=== PATIENT | female | born 1960 | race Caucasian/White ===

== ENCOUNTER 2016-08-12 08:47 | Day surgery (SDC) | payer BC ==
[~2016-08-12 08:47] MED LIST: ACIPHEX20 MG PO; ADULT LOW DOSE81 M1 PO; AMBIEN5 MG PO; AMLOD-VALSA-HC1 EAC1 PO; ANUSOL PR; AZOR 10/40 M1 TABLET PO; AZOR 5/20 MG1 TABLET PO; Anusol HC,Anucort-HC PR; BACTROBAN OINTM22 GM TP; CARDURA4 MG PO; CLONAZEPAM1 MG PO; CRESTOR20 MG PO; CRESTOR40 MG PO; CYMBALTA60 MG PO; Cardizem CD,Cartia X PO; Cardura PO; Cymbalta PO; DIAZEPAM5 MG PO; ENDOCET 5-3251 EACH PO; Elavil PO; FLEXERIL10 MG PO; FLUOXETINE HCL20 MG PO; GABAPENTIN300 MG PO; HYDROCHLOROTHIA25 MG PO; Hydrodiuril,Oretic,E PO; KlonoPIN PO; LISINOPRIL20 MG PO; LORAZEPAM0.5 MG; Lopressor PO; Lovaza PO; MEDROL DOSEPAK4 MG PO; MELOXICAM PO; MELOXICAM15 MG PO; METOPROLOL TAR100 MG PO; MICARDIS80 MG PO; MUPIROCIN22 GM TP; NAPROSYN500 MG PO; NITROGLYCERIN TD; NOHOMEMEDS; Nitrostat,NitroQuick SL; PANTOPRAZOLE SO40 MG PO; PERCOCET 5/31 TABLET PO; PREDNISONE10 MG PO; PRINIVIL20 MG PO; PROTONIX40 MG PO; PROzac PO; PriLOSEC PO; Pristiq PO; Proventil,Ventolin H IH; QUETIAPINE FUMA50 MG PO; TOPIRAMATE25 MG PO; TOPROL XL50 MG PO; TRAMADOL HCL50 MG; TRANSDERM-NITR0.4 MG TD; TRIBENZOR PO; TRICOR145 MG PO; TYLENOL EXTRA500 MG PO; ULTRAM50 MG PO; Ultram PO; VENTOLIN HFA18 GM IH; ZESTRIL20 MG PO; ZOLPIDEM TARTRAT5 MG PO; Zestril,Prinivil PO; [UNRECOGNIZED DRUG - REMARK]
[2016-08-12 10:53] LABS: BASOPHIL COUNT 0.1 K/uL (0-0.1); EOSINOPHIL (%) 2.8 % (0-5); EOSINOPHIL COUNT 0.2 K/uL (0-0.3); HEMATOCRIT 40.5 % (36.0-46.0); IMMATURE GRANULOCYTE (%) 0.3 % (0.0-0.7); LYMPHOCYTE COUNT 1.5 K/uL (1.0-2.8); MCH 30.4 PG (29.0-34.0); MCHC 33.6 G/DL (30.0-36.0); MCV 90.6 FL (83-99); MEAN PLAT.VOLUME 10.3 uM^3 (9.5-12.4); MONOCYTE (%) 5.6 % (3-12); MONOCYTE COUNT 0.3 K/uL (0-0.8); NEUTROPHIL COUNT 3.9 K/uL (1.8-6.4); PLATELET COUNT 260 K/uL (156-360); RBC DIS.WIDTH-CV 13.1 % (11.8-14.6); RBC DIS.WIDTH-SD 43.1 % (39-53); RED BLOOD COUNT 4.47 M/uL (3.80-5.20)
[2016-08-12 11:03] LABS: PROTHROMBIN TIME 9.8 (9.2-11.2); PTT 68.9 (25-32)
[2016-08-12 11:21] LABS: ANION GAP 14 MEQ/L (2-14); CHLORIDE 101 MEQ/L (99-109); GFR ESTIMATE (CALCULATED) > 59 mL/min/; GLUCOSE 93 mg/dL (70-99); POTASSIUM 4.3 MEQ/L (3.7-5.4); SAMPLE HEMOLYSIS CHECK 0; SAMPLE ICTERIC CHECK 0; SAMPLE LIPEMIA CHECK 0; SODIUM 142 MEQ/L (136-147); UREA NITROGEN (BUN) 20 mg/dL (9-23)
== END 2016-08-12 16:08 | disposition home or self-care (01) ==
LOC: CATH 08:47
PROVIDERS: Internal Medicine Interventional Cardiology
DX: R07.9 Chest pain, unspecified (principal); R06.02 Shortness of breath; I10 Essential (primary) hypertension; R94.39 Abnormal result of other cardiovascular function study; E78.5 Hyperlipidemia, unspecified; Z79.82 Long term (current) use of aspirin
CPT/HCPCS: 80048; 85025; 85610; 85730; C1769; C1887; J1644; J2250; J3010; J7050

== ENCOUNTER 2017-11-01 20:49 | Inpatient (IN) | payer BC ==
[~2017-11-01] VITALS: Ht 154.9 cm; Wt 78.8 kg
[2017-11-01 21:33] LABS: HEMATOCRIT 39.1 % (36.0-46.0); HEMOGLOBIN 13.1 G/DL (11.9-15.5); MCH 30.8 PG (29.0-34.0); MCHC 33.5 G/DL (30.0-36.0); PLATELET COUNT 225 K/uL (156-360); RBC DIS.WIDTH-CV 13.1 % (11.8-14.6); RBC DIS.WIDTH-SD 44.2 % (39-53); RED BLOOD COUNT 4.25 M/uL (3.80-5.20); WHITE BLOOD COUNT 5.3 K/uL (4.1-10.2)
[2017-11-01 21:50] LABS: CHLORIDE 106 mEq/L (99-109); POTASSIUM 3.7 mEq/L (3.7-5.4); SODIUM 142 mEq/L (136-147)
[2017-11-01 21:52] LABS: GLUCOSE 103 mg/dL (70-99)
[2017-11-01 21:56] LABS: CREATININE 1.1 mg/dL (0.6-1.3); GFR ESTIMATE (CALCULATED) 54 mL/min/; UREA NITROGEN (BUN) 20 mg/dL (9-23)
[2017-11-02] VITALS (7 sets, daily range): BP systolic 139–174; BP diastolic 74–108
[2017-11-02] MEDS ORDERED: AZOR 10/20 M1 TABLET PO (01:23)
[2017-11-02] MEDS ORDERED: KETOCONAZOLE60 GM TP (01:24)
[2017-11-02] MEDS ORDERED: MELOXICAM15 MG PO (01:24)
[2017-11-02] MEDS ORDERED: AMLODIPINE-OLM1 EAC3 PO (01:25)
[2017-11-02] MEDS ORDERED: CLONIDINE HCL0.1 MG PO (01:26)
[2017-11-02] MEDS ORDERED: ESCITALOPRAM OXA5 MG PO (01:26)
[2017-11-02] MEDS ORDERED: PRAVASTATIN SOD20 MG PO (01:26)
[2017-11-02] MEDS ORDERED: METOPROLOL SUCC25 MG PO (01:26)
[2017-11-02 02:54] LABS: APPEARANCE SL.HAZY ((CLEAR)); BILIRUBIN NEGATIVE; BLOOD NEGATIVE; COLOR YELLOW ((YELLOW)); GLUCOSE (STRIP) NEGATIVE; KETONES NEGATIVE; LEUKOCYTES MODERATE; NITRITE NEGATIVE; PROTEIN (STRIP) NEGATIVE; SPECIFIC GRAVITY 1.027 (1.000-1.030); UROBILINOGEN 0.2 MG/DL (0.2-1.0)
[2017-11-02 02:57] LABS: BACTERIA NONE SEEN /HPF; EPITHELIAL CELLS RARE /HPF; MUCUS TRACE /LPF; RED BLOOD CELLS 0-5 /HPF (0-5); UCUL ADDED? YES; WHITE BLOOD CELLS 30-40 /HPF (0-5)
[2017-11-02 03:22] LABS: HDL CHOLESTEROL 37 MG/DL (Desirable>=50); LDL CHOLESTEROL 52 mg/dL (Desirable<100); NON-HDL CHOLESTEROL 86 mg/dL (Desirable<160); TOTAL CHOLESTEROL 123 mg/dL (Desirable<200); TRIGLYCERIDES 170 MG/DL (Normal: <150)
[2017-11-02 11:03] LABS: HEMOGLOBIN A1c (GLYCOHEMOGLOB) 5.3 % (Below 5.7)
[2017-11-03 00:18] VITALS: BP 142/70
[2017-11-03 04:10] VITALS: BP 134/69
[2017-11-03 08:15] VITALS: BP 149/81
[2017-11-03 12:30] VITALS: BP 136/76
[2017-11-03] MEDS ORDERED: CLOPIDOGREL75 MG PO (13:47)
[2017-11-03] MEDS ORDERED: BUTALB-APAP-CA1 EACH PO (13:49)
== END 2017-11-03 15:38 | disposition home or self-care (01) | DRG 103 ==
LOC: EME 20:49 → EDOF 11-02 01:40 → 5SOUTH 11-02 01:40 → ENRESERV 11-02 01:44 → 4EAST 11-02 03:12 → ENRESERV 11-02 19:25 → 5SOUTH 11-02 20:49
PROVIDERS: Hospitalist
DX: G43.109 Migraine with aura, not intractable, without status migrainosus (principal); R20.2 Paresthesia of skin; I10 Essential (primary) hypertension; E78.5 Hyperlipidemia, unspecified; I48.91 Unspecified atrial fibrillation; F32.9 Major depressive disorder, single episode, unspecified; E66.9 Obesity, unspecified; F41.9 Anxiety disorder, unspecified; K76.0 Fatty (change of) liver, not elsewhere classified; J45.909 Unspecified asthma, uncomplicated; I27.20 Pulmonary hypertension, unspecified; I07.1 Rheumatic tricuspid insufficiency; Z68.32 Body mass index [BMI] 32.0-32.9, adult; Z90.49 Acquired absence of other specified parts of digestive tract; Z88.0 Allergy status to penicillin; Z88.6 Allergy status to analgesic agent
CPT/HCPCS: 70450; 70551; 71046; 80048; 80061; 81003; 83036; 85027; 87086; 93005; 93306; 93880; 99281; 99285

== ENCOUNTER 2018-02-01 10:27 | Inpatient (IN) | payer BC ==
[~2018-02-01] VITALS: Ht 154.9 cm; Wt 75.6 kg
[~2018-02-01 10:27] MED LIST changes: +AMLODIPINE-OLM1 EAC3 PO; +AZOR 10/20 M1 TABLET PO; +BUTALB-APAP-CA1 EACH PO; +CLONIDINE HCL0.1 MG PO; +CLOPIDOGREL75 MG PO; +ESCITALOPRAM OXA5 MG PO; +KETOCONAZOLE60 GM TP; +METOPROLOL SUCC25 MG PO; +PRAVASTATIN SOD20 MG PO
[2018-02-01 11:19] LABS: HEMATOCRIT 38.4 % (36.0-46.0); MCH 30.3 PG (29.0-34.0); MCHC 33.9 G/DL (30.0-36.0); MCV 89.5 FL (83-99); PLATELET COUNT 188 K/uL (156-360); RBC DIS.WIDTH-CV 13.9 % (11.8-14.6); RBC DIS.WIDTH-SD 45.4 % (39-53); RED BLOOD COUNT 4.29 M/uL (3.80-5.20); WHITE BLOOD COUNT 9.3 K/uL (4.1-10.2)
[2018-02-01 11:27] LABS: CHLORIDE 103 mEq/L (99-109); POTASSIUM 3.3 mEq/L (3.7-5.4); SODIUM 138 mEq/L (136-147)
[2018-02-01 11:28] LABS: GLUCOSE 128 mg/dL (70-99)
[2018-02-01 11:32] LABS: CREATININE 4.5 mg/dL (0.6-1.3); GFR ESTIMATE (CALCULATED) 11 mL/min/
[2018-02-01 11:33] LABS: UREA NITROGEN (BUN) 51 mg/dL (9-23)
[2018-02-01 11:37] LABS: TROP-I INTERPRETATION NEGATIVE; TROPONIN-I 0.02 ng/mL (0.0-0.30)
[2018-02-01 11:59] LABS: ALBUMIN 4.4 g/dL (3.2-4.8)
[2018-02-01 12:02] LABS: TOTAL PROTEIN 7.4 g/dL (6.4-8.3)
[2018-02-01 12:04] LABS: TOTAL BILIRUBIN 0.6 mg/dL (0.0-1.0)
[2018-02-01 12:05] LABS: ALKALINE PHOSPHATASE 57 IU/L (3-129)
[2018-02-01 12:07] LABS: AST (GOT) 25 IU/L (2-34); DIRECT BILIRUBIN 0.2 mg/dL (0.0-0.3)
[2018-02-01 12:08] LABS: ALT (GPT) 20 IU/L (3-49); LIPASE 13 U/L (1.0-51.0)
[2018-02-01 12:41] LABS: APPEARANCE CLOUDY ((CLEAR)); BILIRUBIN NEGATIVE; BLOOD LARGE; COLOR AMBER ((YELLOW)); GLUCOSE (STRIP) NEGATIVE; KETONES NEGATIVE; LEUKOCYTES MODERATE; NITRITE NEGATIVE; PROTEIN (STRIP) 100; SPECIFIC GRAVITY 1.024 (1.000-1.030); UROBILINOGEN 0.2 MG/DL (0.2-1.0)
[2018-02-01 12:59] LABS: BACTERIA 2+ /HPF; EPITHELIAL CELLS RARE /HPF; MUCUS 1+ /LPF; UCUL ADDED? YES; WHITE BLOOD CELLS 0-5 /HPF (0-5)
[2018-02-01] MEDS ORDERED: VOLTAREN 1% GE100 GM TP (15:51)
[2018-02-01] MEDS ORDERED: PERCOCET 5/31 TABLET PO (15:53)
[2018-02-01 17:57] VITALS: BP 101/57
[2018-02-01 20:31] VITALS: BP 105/55
[2018-02-01 22:02] LABS: C DIFF TOXIN NEGATIVE (NEGATIVE)
[2018-02-02 00:20] VITALS: BP 103/55
[2018-02-02 03:21] VITALS: BP 99/54
[2018-02-02 07:42] LABS: ALBUMIN 3.5 G/DL (3.2-4.8); CHLORIDE 114 MEQ/L (99-109); GLUCOSE 101 mg/dL (70-99); SODIUM 140 MEQ/L (136-147); UREA NITROGEN (BUN) 44 mg/dL (9-23)
[2018-02-02 07:47] LABS: GFR ESTIMATE (CALCULATED) 27 mL/min/; POTASSIUM 4.1 MEQ/L (3.7-5.4)
[2018-02-02 07:54] LABS: MAGNESIUM 2.1 mg/dl (1.3-2.7)
[2018-02-02 08:04] LABS: BASOPHIL (%) 0.6 % (0-1); EOSINOPHIL (%) 0.2 % (0-5); HEMATOCRIT 33.4 % (36.0-46.0); IMMATURE GRANULOCYTE (%) 0.2 % (0.0-0.7); LYMPHOCYTE (%) 17.6 % (15-42); LYMPHOCYTE COUNT 0.9 K/uL (1.0-2.8); MCH 29.4 PG (29.0-34.0); MCHC 32.3 G/DL (30.0-36.0); MONOCYTE (%) 6.3 % (3-12); MONOCYTE COUNT 0.3 K/uL (0-0.8); NEUTROPHIL (%) 75.1 % (45-76); NEUTROPHIL COUNT 3.7 K/uL (1.8-6.4); PLATELET COUNT 172 K/uL (156-360); RBC DIS.WIDTH-CV 14.1 % (11.8-14.6); RBC DIS.WIDTH-SD 47.4 % (39-53); RED BLOOD COUNT 3.67 M/uL (3.80-5.20); WHITE BLOOD COUNT 4.9 K/uL (4.1-10.2)
[2018-02-02 08:26] VITALS: BP 105/54
[2018-02-02 08:58] LABS: HEMOGLOBIN 10.8 G/DL (11.9-15.5)
[2018-02-02 12:07] VITALS: BP 97/52
[2018-02-02 16:13] VITALS: BP 110/58
[2018-02-03 00:04] VITALS: BP 122/58
[2018-02-03 03:51] VITALS: BP 108/60
[2018-02-03 07:27] LABS: ALBUMIN 3.3 G/DL (3.2-4.8); CHLORIDE 112 MEQ/L (99-109); GFR ESTIMATE (CALCULATED) 49 mL/min/; GLUCOSE 90 mg/dL (70-99); PHOSPHORUS 2.3 mg/dL (2.5-4.9); POTASSIUM 3.9 MEQ/L (3.7-5.4); SODIUM 139 MEQ/L (136-147)
[2018-02-03 07:35] LABS: CREATININE 1.2 MG/DL (0.6-1.3); UREA NITROGEN (BUN) 19 mg/dL (9-23)
[2018-02-03 07:39] LABS: ALBUMIN 3.3 G/DL (3.2-4.8); ALKALINE PHOSPHATASE 235 IU/L (3-129); ALT (GPT) 526 IU/L (3-49); AST (GOT) 507 IU/L (2-34); CHLORIDE 112 MEQ/L (99-109); CREATININE 1.1 MG/DL (0.6-1.3); GFR ESTIMATE (CALCULATED) 54 mL/min/; GLUCOSE 91 mg/dL (70-99); MAGNESIUM 1.8 mg/dl (1.3-2.7); PHOSPHORUS 2.3 mg/dL (2.5-4.9); POTASSIUM 3.9 MEQ/L (3.7-5.4); SODIUM 140 MEQ/L (136-147); TOTAL BILIRUBIN 0.5 MG/DL (0.0-1.0); TOTAL PROTEIN 5.1 G/DL (6.4-8.3); UREA NITROGEN (BUN) 20 mg/dL (9-23)
[2018-02-03 07:44] LABS: HEMATOCRIT 32.8 % (36.0-46.0); HEMOGLOBIN 10.7 G/DL (11.9-15.5); MCH 29.7 PG (29.0-34.0); MCHC 32.6 G/DL (30.0-36.0); MCV 91.1 FL (83-99); PLATELET COUNT 160 K/uL (156-360); RBC DIS.WIDTH-CV 14.1 % (11.8-14.6); RBC DIS.WIDTH-SD 47.8 % (39-53); WHITE BLOOD COUNT 3.9 K/uL (4.1-10.2)
[2018-02-03 08:04] VITALS: BP 110/57
[2018-02-03 11:23] LABS: ABS NEUTROPHIL COUNT 2.3; BAND NEUTROPHILS 43.1 % (0-8.0); BASOPHILS 1.8 %; BURR CELLS 1+; EOSINOPHIL ABS CT 0; EOSINOPHILS 0.9 % (0-5.0); MONOCYTES 3.7 % (0-9.0); OVALOCYTES 1+; PLAT.SUFFICIENCY ADEQUATE; POIKILOCYTOSIS 1+; SEG.NEUTROPHILS 16.5 % (46.0-76.0)
[2018-02-03 14:09] LABS: HEPATITIS B SURFACE ANTIGEN Nonreactive; HEPATITIS C ANTIBODY Nonreactive
[2018-02-03 14:10] LABS: ANTI-HEPATITIS A VIRUS (IGM) Nonreactive
[2018-02-03 14:11] LABS: ANTI-HEPATITIS B CORE (IGM) Nonreactive
[2018-02-03 15:27] VITALS: BP 125/66
[2018-02-04 00:31] VITALS: BP 131/68
[2018-02-04 06:37] LABS: BASOPHIL (%) 0.9 % (0-1); EOSINOPHIL (%) 2.1 % (0-5); EOSINOPHIL COUNT 0.1 K/uL (0-0.3); HEMATOCRIT 34.5 % (36.0-46.0); HEMOGLOBIN 11.2 G/DL (11.9-15.5); IMMATURE GRANULOCYTE (%) 0.9 % (0.0-0.7); LYMPHOCYTE (%) 23.3 % (15-42); LYMPHOCYTE COUNT 1.1 K/uL (1.0-2.8); MCH 29.2 PG (29.0-34.0); MCHC 32.5 G/DL (30.0-36.0); MCV 89.8 FL (83-99); MONOCYTE (%) 9.2 % (3-12); MONOCYTE COUNT 0.4 K/uL (0-0.8); NEUTROPHIL (%) 63.6 % (45-76); PLATELET COUNT 176 K/uL (156-360); RBC DIS.WIDTH-CV 13.6 % (11.8-14.6); RBC DIS.WIDTH-SD 44.8 % (39-53); RED BLOOD COUNT 3.84 M/uL (3.80-5.20); WHITE BLOOD COUNT 4.7 K/uL (4.1-10.2)
[2018-02-04 07:01] LABS: ALBUMIN 3.4 G/DL (3.2-4.8); CHLORIDE 109 MEQ/L (99-109); GFR ESTIMATE (CALCULATED) > 59 mL/min/; GLUCOSE 90 mg/dL (70-99); PHOSPHORUS 2.6 mg/dL (2.5-4.9); POTASSIUM 3.8 MEQ/L (3.7-5.4); SODIUM 140 MEQ/L (136-147); UREA NITROGEN (BUN) 12 mg/dL (9-23)
[2018-02-04 07:03] LABS: ALBUMIN 3.3 G/DL (3.2-4.8); ALKALINE PHOSPHATASE 224 IU/L (3-129); ALT (GPT) 326 IU/L (3-49); CHLORIDE 109 MEQ/L (99-109); CREATININE 0.9 MG/DL (0.6-1.3); GFR ESTIMATE (CALCULATED) > 59 mL/min/; GLUCOSE 89 mg/dL (70-99); MAGNESIUM 1.7 mg/dl (1.3-2.7); PHOSPHORUS 2.7 mg/dL (2.5-4.9); POTASSIUM 3.9 MEQ/L (3.7-5.4); SODIUM 140 MEQ/L (136-147); TOTAL BILIRUBIN 0.4 MG/DL (0.0-1.0); TOTAL PROTEIN 5.3 G/DL (6.4-8.3); UREA NITROGEN (BUN) 12 mg/dL (9-23)
[2018-02-04 07:04] LABS: AST (GOT) 184 IU/L (2-34)
[2018-02-04 08:21] VITALS: BP 138/82
[2018-02-04 15:44] VITALS: BP 168/74
[2018-02-04 23:53] VITALS: BP 161/84
[2018-02-05 06:51] LABS: BASOPHIL COUNT 0.1 K/uL (0-0.1); EOSINOPHIL (%) 2.6 % (0-5); EOSINOPHIL COUNT 0.2 K/uL (0-0.3); HEMATOCRIT 33.4 % (36.0-46.0); IMMATURE GRANULOCYTE (%) 4.7 % (0.0-0.7); LYMPHOCYTE (%) 25.2 % (15-42); LYMPHOCYTE COUNT 1.5 K/uL (1.0-2.8); MCH 29.7 PG (29.0-34.0); MCHC 32.9 G/DL (30.0-36.0); MCV 90.3 FL (83-99); MONOCYTE (%) 9.5 % (3-12); MONOCYTE COUNT 0.6 K/uL (0-0.8); NEUTROPHIL COUNT 3.3 K/uL (1.8-6.4); PLATELET COUNT 210 K/uL (156-360); RBC DIS.WIDTH-CV 13.7 % (11.8-14.6); RBC DIS.WIDTH-SD 45.2 % (39-53); WHITE BLOOD COUNT 5.8 K/uL (4.1-10.2)
[2018-02-05 07:18] LABS: ALBUMIN 3.6 G/DL (3.2-4.8); ALKALINE PHOSPHATASE 233 IU/L (3-129); ALT (GPT) 201 IU/L (3-49); AST (GOT) 63 IU/L (2-34); CHLORIDE 107 MEQ/L (99-109); CREATININE 0.9 MG/DL (0.6-1.3); GFR ESTIMATE (CALCULATED) > 59 mL/min/; GLUCOSE 95 mg/dL (70-99); POTASSIUM 4.2 MEQ/L (3.7-5.4); SODIUM 142 MEQ/L (136-147); TOTAL BILIRUBIN 0.4 MG/DL (0.0-1.0); TOTAL PROTEIN 5.4 G/DL (6.4-8.3); UREA NITROGEN (BUN) 12 mg/dL (9-23)
[2018-02-05 07:19] LABS: ALBUMIN 3.6 G/DL (3.2-4.8); CHLORIDE 107 MEQ/L (99-109); CREATININE 0.9 MG/DL (0.6-1.3); GFR ESTIMATE (CALCULATED) > 59 mL/min/; GLUCOSE 95 mg/dL (70-99); POTASSIUM 4.2 MEQ/L (3.7-5.4); SODIUM 142 MEQ/L (136-147); UREA NITROGEN (BUN) 12 mg/dL (9-23)
[2018-02-05 07:35] LABS: PHOSPHORUS 3.2 mg/dL (2.5-4.9)
[2018-02-05 09:06] VITALS: BP 126/67
[2018-02-05 09:14] VITALS: BP 160/80
[2018-02-05] MEDS ORDERED: METRONIDAZOLE500 MG PO (09:41)
== END 2018-02-05 11:40 | disposition home or self-care (01) | DRG 683 ==
LOC: EME 10:27 → EDOF 14:21 → 2EAST 14:21 → ENRESERV 14:43 → CANRESERV 14:43 → ENRESERV 15:11 → CANRESERV 15:11 → ENRESERV 15:12 → CANRESERV 15:12 → ENRESERV 15:26 → 2EAST 17:33
PROVIDERS: Emergency Medicine; Hospitalist; Internal Medicine; Internal Medicine Gastroenterology; Internal Medicine Nephrology
DX: N17.0 Acute kidney failure with tubular necrosis (principal); A09 Infectious gastroenteritis and colitis, unspecified; I95.1 Orthostatic hypotension; I48.0 Paroxysmal atrial fibrillation; E86.0 Dehydration; E87.2 Acidosis; I10 Essential (primary) hypertension; I27.20 Pulmonary hypertension, unspecified; E78.5 Hyperlipidemia, unspecified; D64.9 Anemia, unspecified; E03.9 Hypothyroidism, unspecified; J45.909 Unspecified asthma, uncomplicated; G43.909 Migraine, unspecified, not intractable, without status migrainosus; F32.9 Major depressive disorder, single episode, unspecified; F41.9 Anxiety disorder, unspecified; Z79.02 Long term (current) use of antithrombotics/antiplatelets; Z80.0 Family history of malignant neoplasm of digestive organs
CPT/HCPCS: 70450; 74176; 76770; 80048; 80053; 80069; 80074; 80076; 81003; 82570; 83605; 83630; 83690; 83735; 84100; 84156; 84484; 85025; 85027; 87086; 87177; 87493; 93005; 93975; 99281; 99285; J1644; J2270; J2405; J3480; J7030; S0030